=== PATIENT | male | born 1950 ===

== ENCOUNTER 2025-08-12 08:54 | Outpatient (AMB) | payer MEDICARE, SELFPAY ==
--- NOTE | 2025-08-12 08:58 | A.PHYSOV ---
Vital Signs 08/12/25 09:00 Height 5 ft 7 in Weight 165 lb BMI 25.8 Intake Visit Reasons: F/U after injection 06/25/2025 Intake Note: Patient is a 74 year male in office today for a follow up after L5-S1 interlaminar epidural injection. Binder Chainstitch Required: No Allergies Seasonal Allergies Allergy (Unknown, Verified 08/12/25 09:01) Unknown HPI Comments Details: History of Present Illness The patient is a 74 year old male presenting for a follow-up visit to assess his response to an epidural injection for chronic pain. He underwent L5-S1 MAULIK on 06/25/2025. He reports significant improvement, estimating an 80% reduction in his low back and leg pain following the recent procedure. This is in contrast to a previous injection, which he states only provided relief for about two weeks. Prior to the recent injection, the pain was described as severe. The patient still notices a cracking sound in his lower back, which is thought to be related to arthritis. He also reports feeling weak and has had to modify activities, such as breaking down 250-pound bags of pellets into thirds to carry them. The patient is cautious with his movements to manage his condition and wishes to avoid surgery. He previously underwent bilateral L4-5, L5-S1 facet injection with 2 weeks of very good relief but his pain returned. Pain Description - Location: Pain is located in the lower back, with associated leg pain. - Quality: Patient reports a cracking sound in his back, which is attributed to arthritis. - Onset/Timing: Chronic condition with severe pain prior to the recent injection. - Severity: Patient reports an 80% improvement in pain following the recent epidural injection. - Functional Impact: Patient reports feeling weak and has had to modify his lifting habits, such as reducing the weight of bags he carries. - Relieving Factors: A recent epidural injection provided significant relief. - Exacerbating Factors: Patient must be careful with movements. Procedure: Bilateral L4-5, L5-S1 facet injection 04/30/2025 90% reduction of his pain for 2 weeks L5-S1 MAULIK 06/25/2025 80% reduction of his pain PFS Surgical History (Updated 08/12/25 @ 09:05 by Nan Golden MA) Closed right arm fracture H/O thumb surgery History of ankle surgery History of cancer surgery Social History (Updated 08/12/25 @ 09:03 by Nan Golden MA) Alcohol intake: current Alcohol intake frequency: holidays/special occasions only Patient Tobacco Use Status: Never used Tobacco Use of substances other than those prescribed or required for medical reasons: No Review of Systems Narrative Review of Systems - Musculoskeletal: Reports significantly improved low back and leg pain. - Reports a cracking sound in his back. - Constitutional: Reports weakness. Physical Exam Exam Exam: Physical Exam Lumbar Spine: Examination of his lumbar spine, there is no visible swelling or deformity. He is less tender to lower lumbar facets. He is otherwise nontender. Full range of motion lumbar spine. Special Tests: Lhermittes sign was negative Heel Toe walk is normal Left straight leg raise: Negative Right straight leg raise: Negative Special tests Darin test is negative Ganslen's test is negative SI Joint compression test negative Thiago test negative Piriformis stretch is negative Lower Extremities: Full range of motion bilateral lower extremities. No calf pain or edema. Neuro: Sensation: Intact to lower extremities bilaterally Strength L2 (Psoas): 5/5 on the left and 5/5 on the right. L3 (Quads): 5/5 on the left and 5/5 on the right. L4 (Ant tibialis): 5/5 on the left and 5/5 on the right. L5 (EHL) 5/5 on the left and 5/5 on the right. S1 (Gastroc): 5/5 on the left and 5/5 on the right. DTR L4: (Patellar) Left 0 Right 0 S1: (Achilles) Left 1 Right 1 Babinski Downgoing No pathologic clonus. No involuntary movement. Vital Signs: BMI result Body Mass Index 25.8 Assessment & Plan Assessment & Plan (1) Lumbar radiculopathy: Code(s): M54.16 - Radiculopathy, lumbar region Category: Medical (2) Lumbar spondylosis: Code(s): M47.816 - Spondylosis without myelopathy or radiculopathy, lumbar region Category: Medical Plan Pain Management - Analgesia: Following a recent epidural injection, the patient reports an 80% reduction in pain, noting a prior injection was less effective and lasted only a couple of weeks. - Activities of Daily Living: The patient reports feeling weak and has modified his lifting activities, such as breaking down heavy bags into smaller portions to carry them. - Affect: The patient expressed a desire to avoid an operation. Plan Patient was informed and verbally consented to the use of an ambient scribe for clinic note documentation during this visit. 1. Chronic Low Back Pain The patient reports an 80% improvement in his chronic low back and leg pain following a L5-S1 epidural injection, which is a significant improvement compared to a previous, less effective injection. The expected duration of relief from this injection is 3 to 6 months. If the pain returns, the same injection can be repeated, with the earliest possible date being four months after the last procedure, sometime in October. The patient was advised to contact the office to determine insurance requirements for a repeat injection, as an office visit may or may not be necessary depending on his plan. Discussion Notes I discussed with the patient his excellent response to the recent epidural injection, noting his reported 80% pain improvement. We reviewed that this result was much better than his prior injection. I explained that a reasonable expectation for the duration of relief is three to six months, though it can vary. We agreed that if the pain returns, we can repeat the same successful injection. I advised him that the soonest a repeat injection could be performed is four months from the last one, placing it around October. I instructed him to contact Jacy in our office first should his pain return, as she can clarify the insurance requirements for ordering the next injection, which may or may not require a preliminary office visit. The patient understands the plan and his desire to avoid surgery was acknowledged as a wang factor in this management approach. Patient Instructions - Continue to be careful with your movements and protect your back to prolong the effects of the injection. - The relief from your injection is expected to last for three to six months. - If your pain returns, we can give you another injection. - The soonest you can get another injection is four months after your last one, which would be in October. - If your pain comes back, please call our office first and speak to Jacy to see what your insurance requires before scheduling the next injection. Coding Level of Care Code Est Pt Level 3 (07539) Diagnoses Lumbar radiculopathy M54.16 Lumbar spondylosis M47.816
[2025-08-12 09:00] VITALS: BMI 25.8
== END 2025-08-12 09:20 | disposition home or self-care (01) ==
LOC: HO.HPHYS 08:54
PROVIDERS: Visit Provider Physician Assistant
DX: M54.16 Radiculopathy, lumbar region (principal); M47.816 Spondylosis without myelopathy or radiculopathy, lumbar region
CPT/HCPCS: 99213

== ENCOUNTER → 2025-08-12 08:54 | Outpatient (BNVA) | payer MEDICARE, SELFPAY | PROVIDERS: Visit Provider Physician Assistant | DX: M47.816 Spondylosis without myelopathy or radiculopathy, lumbar region (principal); M54.16 Radiculopathy, lumbar region; G89.29 Other chronic pain | CPT/HCPCS: 99212 ==